=== PATIENT | male | born 1990 | race Hispanic/Latino ===

== ENCOUNTER 2020-09-28 17:09 | Emergency (ER) | payer OTHER ==
[2020-09-28] MEDS ORDERED: Lidocaine 2% PF 5 ML VIAL ONE (17:32)
[2020-09-28] MEDS ORDERED: Bacitracin 1 PK ONE (18:08)
[2020-09-28] MEDS ORDERED: Cephalexin 250 MG CAP ONE ×2 (18:10)
== END 2020-09-28 18:22 | disposition home or self-care (01) ==
LOC: BURERS 17:09
DX: S61.217A Laceration without foreign body of left little finger without damage to nail, initial encounter (principal); W26.8XXA Contact with other sharp object(s), not elsewhere classified, initial encounter; Y99.0 Civilian activity done for income or pay
CPT/HCPCS: 12002; J2001